=== PATIENT | male | born 1970 | race Caucasian/White ===

== ENCOUNTER 2018-02-12 11:51 | Day surgery (SDC) | payer OTHER ==
[~2018-02-12] VITALS: Ht 175.3 cm; Wt 97.9 kg
[2018-02-12] MEDS ORDERED: IOHEXOL 350 MG/ML 100 ML BTL (for Cath Lab) OTHER ONE (11:52)
[2018-02-12] MEDS ORDERED: NITR1SUB3 SL (12:34)
[2018-02-12] MEDS ORDERED: ASPI81TA23 PO (12:34)
[2018-02-12] MEDS ORDERED: ENAL10TA PO (12:34)
[2018-02-12] MEDS ORDERED: ROSU1TAB10 PO (12:34)
[2018-02-12] MEDS ORDERED: CARD120C4 PO (12:34)
[2018-02-12 12:35] VITALS: BP 127/81; PULSE 61; RESP 16; TEMP 98.4; O2SAT 97
[2018-02-12] MEDS ORDERED: NS 1000P @30 MLS/HR (KVO) IV SCH (12:45)
[2018-02-12 13:05] LABS: AUTOMATED NEUTROPHIL # 4.4 TH/MM3 (1.8-7.7); BASOPHIL % 0.7 % (0.0-2.0); EOSINOPHIL # 0.1 TH/MM3 (0-0.4); EOSINOPHIL % 1.6 % (0.0-4.0); HEMOGLOBIN 15.1 GM/DL (13.0-17.0); LYMPH % 23.7 % (9.0-44.0); LYMPHOCYTE # 1.6 TH/MM3 (1.0-4.8); MEAN CELL VOLUME 91.4 FL (80.0-100.0); MEAN CORPUSCULAR HEMOGLOBIN 32.1 PG (27.0-34.0); MEAN CORPUSCULAR HGB CONC 35.1 % (32.0-36.0); MEAN PLATELET VOLUME 7.4 FL (7.0-11.0); MONO % 7.4 % (0.0-8.0); MONOCYTE # 0.5 TH/MM3 (0-0.9); NEUT % 66.6 % (16.0-70.0); PLATELET COUNT 327 TH/MM3 (150-450); RED BLOOD COUNT 4.71 MIL/MM3 (4.50-5.90); WHITE BLOOD COUNT 6.6 TH/MM3 (4.0-11.0)
[2018-02-12 13:14] LABS: PROTHROMBIN TIME - PATIENT 10.3 SEC (9.8-11.6)
[2018-02-12 13:24] LABS: BICARBONATE 24.5 MEQ/L (21.0-32.0); CALCIUM 8.6 MG/DL (8.5-10.1); CREATININE 0.95 MG/DL (0.60-1.30)
[2018-02-12] MEDS ORDERED: MIDAZOLAM HCL 2 MG/2 ML VIAL ONE (13:32)
[2018-02-12] MEDS ORDERED: VERAPAMIL HCL 5 MG/2 ML VIAL ONE (13:32)
[2018-02-12] MEDS ORDERED: NITROGLYCERIN INJ 5 ML ONE (13:32)
[2018-02-12] MEDS ORDERED: HEPARIN SODIUM - IV 10,000 UNITS/10 ML VIAL ONE (13:32)
--- NOTE | 2018-02-12 14:34 | CATHPROC ---
[facility] HIS Report Study Information Study Number Admission Scheduled Start Study Start [id number] Feb 12 2018 11:51AM 02/12/2018 Feb 12 2018 1:11PM [place] Service Cardiac Catheterization Admit Source Facility Department Other [facility] - Director Of Early Childhood Education Physician and Clinical Staff Initial Raciel Ortega Television Cameraman Lizzette Harper,SOHAIL Recorder Kelsea Tao,RT(R) Recorder Abdifatah SAUCEDA, Yolanda Handley,RT(R) X-Ray Shagufta Branham ,RT(R) Procedures Performed Procedure Location (Site) Vessel Name Coronary Angiograms LCA Left Coronary Coronary Angiograms RCA Right Coronary L Heart Cath Wire insertion Radial (left) Radial Art. Equipment Time Spanish Medical Interpreter Description Size Mfg Part Number Used/Scraped TRANSDUCER, TRUWAVE [id number] 13:14 ENDYMION * Used W/Ciklum *[id number] [id number] *[id number] 13:14 [employer] PACK, CCL CUSTOM * Used *[id number] 13:14 [employer] SUPPORT, ARTERIAL ADULT 99767 *[id number] Used [id number] 13:50 MEDTRONIC JL 4.0 DXTERITY CATHETER FR 5 Used *[id number] PIG ANG 145 DXTERITY 14:16 [employer] FR 5 [id number] Used CATHETER [id number] 13:58 [employer]/AVE EBU 3.5 Z2 GUIDE CATHETER FR 6 Used *[id number] BAND, RADIAL COMPRESSION TR [id number] 14:22 [employer] MEDICAL 24CM Used SHORT 24 *[id number] 13:58 [employer] MEDICAL PACK, ANGIOPLASTY * [id number] Used [id number] 13:14 [employer] MEDICAL WIRE, EXCHANGE 260CM 3MMJ 260CM Used *[id number] 13:14 NAMIC MANIFOLD, 4 PORT * Used *[id number] 13:14 NYCOMED OMNIPAQUE, 350 MG, 150ML 150ML [id number] Used [id number] 13:14 [employer] MEDICAL BLANKET,WARM AIR CCL * Used *[id number] SHEATH, FR6 TRANSRADIAL RM*[id number] 13:14 [employer] MEDICAL FR 6 Used SLENDER 10CM *[id number] 13:58 [employer] PRIME WIRE, VERRATA 185CM 185CM 57764 *[id number] Used Equipment Model, Serial, Lot Number and Expiration Data Description Model Number Serial Number Lot Number Expiration Date JL 4.0 DXTERITY CATHETER [id number] 08-20-2020 PACK, ANGIOPLASTY [id number] 08-31-2020 PIG ANG 145 DXTERITY CATHETER [id number] 07-22-2019 PRIME WIRE, ASIYARATA 185CM [id number] 01-01-2021 History: Allergies Allergy Reaction Ibuprofen History: Risk Factors Family History of Hypertension Dyslipidemia Previous IL Previous Heart Failure Premature CAD Yes Yes Yes No No Prior Valve Prior PCI Prior CABG Surgery No No No Cerebrovascular Peripheral Artery Chronic Lung On Dialysis Diabetes Disease Disease Disease No No No No No History: Stress Tests Stress or Imaging Studies Performed No History: Other Current Smoker No Labs Hgb (g/dl) Hct (%) WBC (l/cumm) Platelets (thousands) 11.60-17.00 35.00-51.00 4.00-11.00 150.00-450.00 15.1 43 6.6 327 Glucose (mg/dl) BUN (mg/dl) Creatinine (mg/dl) BUN:Creatinine (1:x) 74.00-106.00 7.00-18.00 0.50-1.30 10.00-20.00 96 16 0.9 17.8 Na (meq/l) K (meq/l) 136.00-145.00 3.50-5.10 141 3.6 INR (PTT:PT) 0.90-1.10 1 CPK-MB (ng/ML) 0.50-3.60 Not Drawn Medication Medication Total Dose (Bolus/Oral) Medication Total Dosage/Unit 1% XYLOCAINE 3 mL FENTANYL 25 mcg HEPARIN 5800 units RADIAL COCKTAIL 5 mL (Bolus) VERSED 1 mg Medications (Bolus/Oral) Medication Time Given Dosage/Unit Administered By Reason VERSED 02/12/2018 1:36:18 PM 0.5 mg Lizzette Harper 0.5 mg VERSED given by Lizzette Harper, RN via Peripheral IV. Ordered by Raciel Cortes FENTANYL 02/12/2018 1:36:21 PM 25 mcg Lizzette Harper 25 mcg FENTANYL given in lab by Lizzette Harper, RN via Peripheral IV. Ordered by Raciel Cortes . 1% XYLOCAINE 02/12/2018 1:37:02 PM 3 mL Raciel Cortes 3 mL 1% XYLOCAINE given in lab by Raciel Cortes in Left Wrist via Subcutaneous. Ordered by Raciel Story Ntg 200mcg Verapamil 2.5mg Heparin RADIAL COCKTAIL 02/12/2018 1:38:50 PM 5 mL (Bolus) Raciel Cortes 3000U 5 mL (Bolus) RADIAL COCKTAIL given in lab by Raciel Cortes via Radial. Using [Solution Name]. O rdered by Raciel Cortes Reason: Ntg 200mcg Verapamil 2.5mg Heparin 4000U. VERSED 02/12/2018 1:40:54 PM 0.5 mg Lizzette Harper 0.5 mg VERSED given by Lizzette Harper, SOHAIL via Peripheral IV. Ordered by Raciel Cortes HEPARIN 02/12/2018 1:57:49 PM 5800 units Lizzette Harper 5800 units HEPARIN given in lab by Lizzette Harper, SOHAIL via Peripheral IV. Ordered by Junior Cortes Initial Case Assessment Initial Case Assessment Cardiovascular HR NIBP 84 134/84 Edema Present Skin color Skin None Normal Warm Dry Circulatory - Right Pulses Dorsalis Pedis Femoral Radial 3 3 3 Scale (0,1,2,3,4,d) Circulatory - Left Pulses Dorsalis Pedis Femoral Radial 2 1 Scale (0,1,2,3,4,d) Neurological State Oriented to time-place- Alert Moves all extremities person Respiration - General SpO2 (%) 96 Chronological Log Time Study Chronological Log 13:07:47 Patient arrived via Bed. 13:10:52 Patient Name, D.O.B, / Armband Verified By R.N. 13:10:52 Consent signed by the physician and the patient and verified by the Director Of Early Childhood Education staff. 13:10:53 Pre-op and post- op instructions given; patient acknowledges understanding of instructions. 13:10:54 Verbal Stimulation=2 Physical Stimulation=2 Airway=2 Respiration=2 TOTAL=8. (0=absent, 1=li mited, 2=present) Allens test performed on the left radial and ulnar artery by DEBBY with a positive result 13:10:55 13:11:01 Patient has been NPO for More than 6Hrs. 13:11:02 Skin Breakdown-none 13:11:04 A # 20 IV was noted in the Antecubital (left). Grade = 0 13:11:08 History and physical on the chart or being dictated. 13:11:09 Assessment: Initial Case Vitals capture started with the following parameters, Patient=Adult, Interval=5 min, Initial Pr xndfzz=695 mmHg, 13:15:09 Deflation Rate=5 mmHg, Cuff placed on Left Leg 13:15:49 HR=66 bpm, ERKI=154/84 mmhg, SpO2=94.0 %, Resp=15 B/min, Pain=0, Amita=10, Medeiros=2 13:18:41 Allens test performed on the right radial and ulnar artery. 13:19:06 Skin Breakdown- none reported by patient 13:19:37 Maurice Prominences Protected Assessment: Initial Case, HR=84 BPM, STUJ=772/84 mmhg, Edema=None, Color=Normal, Skin = Warm, D ry Right Pulses: Kin Ped=3, Femoral=3, Radial=3 13:19:46 Left Pulses: Kin Ped=2, Femoral=1 Neurological: State=Alert, Ox3, ROD Respiration: SpO2=96 % 13:20:46 HR=62 bpm, FTCB=414/79 mmhg, SpO2=98.0 %, Resp=11 B/min, Pain=0, Medeiros=2 13:21:03 Left radial and groin(s) prepped with 2% chlorhexidine, and draped after a 3 min. waiting t daniela. 13:24:18 MD arrived. 13:25:45 HR=60 bpm, WBLU=509/82 mmhg, SpO2=98.0 %, Resp=12 B/min, Pain=0, Medeiros=2 13:26:29 Pressure channel 1 zeroed. 13:26:51 Pressure channel 1 zeroed. 13:30:44 HR=58 bpm, XNZO=452/83 mmhg, SpO2=97.0 %, Resp=7 B/min, Pain=0, Medeiros=2 Time Out. Correct patient, correct procedure, correct physician, power injector loaded, or not loaded with contrast with 13:34:05 surgical team present. Time Out Concurred by MD and individual staff in procedure. 13:34:25 Case Start 13:35:43 HR=60 bpm, VJAW=960/86 mmhg, Resp=14 B/min, Pain=0, Medeiros=2 13:36:18 0.5 mg VERSED given by Lizzette Harper, SOHAIL via Peripheral IV. Ordered by Raciel Cortes 13:36:21 25 mcg FENTANYL given in lab by Lizzette Harper, SOHAIL via Peripheral IV. Ordered by Raciel Cortes 3 mL 1% XYLOCAINE given in lab by Raciel Cortes in Left Wrist via Subcutaneous. Ordered b y Raciel Cortes 13:37:02 G. 13:38:07 Access site was Left Radial Artery. A SHEATH, FR6 TRANSRADIAL SLENDER 10CM FR 6 was advanced into the Radial (left) using the Modif ied Seldinger 13:38:26 technique. 5 mL (Bolus) RADIAL COCKTAIL given in lab by Raciel Cortes via Radial. Using [Solution Na me]. Ordered by 13:38:50 Raciel Cortes Reason: Ntg 200mcg Verapamil 2.5mg Heparin 4000U. 13:40:08 A JR 4.0 INFINITI CATHETER FR 5 was advanced over a wire. 13:40:54 0.5 mg VERSED given by Lizzette Harper, SOHAIL via Peripheral IV. Ordered by Raciel Cortes 13:41:14 HR=67 bpm, AMPN=572/77 mmhg, SpO2=97.0 %, Resp=14 B/min, Pain=0, Medeiros=2 13:41:43 Wire removed 13:44:05 Pressure channel 1 zeroed. 13:44:17 NIBP STAT measurement started. 13:44:56 HR=62 bpm, NIBP=98/56 mmhg, Resp=17 B/min, Pain=0, Medeiros=2 13:45:55 HR=63 bpm, NIBP=99/46 mmhg, SpO2=94.0 %, Resp=29 B/min, Pain=0, Medeiros=2 13:46:30 The RCA was injected and visualized at various angles. OMNIPAQUE, 350 MG, 150ML 150ML used . 13:47:21 NIBP STAT measurement started. 13:47:54 HR=60 bpm, NIBP=99/46 mmhg, SpO2=95.0 %, Resp=19 B/min, Pain=0, Medeiros=2 After removing the current catheter a JL 4.0 DXTERITY CATHETER FR 5 was advanced over a WIRE, E XCHANGE 260CM 13:49:58 3MMJ 260CM. 13:50:40 HR=65 bpm, KNHC=516/69 mmhg, SpO2=96.0 %, Resp=17 B/min, Pain=0, Medeiros=2 13:51:17 The LCA was injected and visualized at various angles. OMNIPAQUE, 350 MG, 150ML 150ML used . 13:55:43 HR=58 bpm, CPUU=304/74 mmhg, Resp=14 B/min, Pain=0, Medeiros=2 After removing the current catheter a EBU 3.5 Z2 GUIDE CATHETER FR 6 was advanced over a WIRE, EXCHANGE 13:57:03 260CM 3MMJ 260CM. 13:57:49 5800 units HEPARIN given in lab by Lizzette Harper RN via Peripheral IV. Ordered by Raciel Cheek 14:00:46 HR=59 bpm, DTHW=450/72 mmhg, SpO2=94 %, Resp=12 B/min, Pain=0, Medeiros=2 14:05:45 HR=58 bpm, OIAV=898/72 mmhg, SpO2=94.0 %, Resp=18 B/min, Pain=0, Medeiros=2 14:05:54 A PRIME WIRE, VERRATA 185CM 185CM was inserted via Radial (left). 14:10:46 HR=59 bpm, GSPZ=198/66 mmhg, SpO2=94.0 %, Resp=17 B/min, Pain=0, Medeiros=2 14:11:01 Flow Wire was was placed in the OM1 Mid.. The IFR measures 0.98 Percent. 14:12:36 The PRIME WIRE, VERRATA 185CM 185CM was removed. After removing the current catheter a PIG ANG 145 DXTERITY CATHETER FR 5 was advanced over a WI RE, EXCHANGE 14:14:04 260CM 3MMJ 260CM. 14:15:47 HR=60 bpm, PSHU=788/67 mmhg, SpO2=97.0 %, Resp=18 B/min, Pain=0, Medeiros=2 Recorded Pressure: LV, HR=58, Condition=Condition 1 14:19:27 (Left Ventricle) LV 114/-1/16 Recorded Pressure: LV, Ao, HR=56, Condition=Condition 1 14:19:41 (Left Ventricle) LV 111/-1/17, (Aorta) Ao 108/63/85 14:20:42 HR=66 bpm, CAYI=955/75 mmhg, SpO2=97.0 %, Resp=22 B/min, Pain=0, Medeiros=2 14:20:50 Case End Radial Compression Device Used. 9 mLs of air placed in BAND, RADIAL COMPRESSION TR SHORT 24 24C M. Affected 14:21:22 hand 94 % O2 saturation. 14:24:48 Vitals capture stopped. 14:26:24 Bedside Report will be given. 14:27:20 DOCU called. Spoke to Fela 14:27:51 A Left Heart Cath was performed. 14:30:30 Patient moved to stretcher End Study - Contrast Media Used In Study Contrast Total Opened (mL) Total Used (mL) Total Wasted (mL) Omnipaque 70 70 0 End Study - Maximum Contrast Load Max Contrast Load (mL) 543.9 End Study - Radiation Exposure Fluoro Time (minutes) 8.9 End Study - Patient Disposition Complications Transferred To Interventional Outcome No Director Of Early Childhood Education Holding No attempt made
[2018-02-12] MEDS ORDERED: MISC INFORMATION XX ONE (14:45)
--- NOTE | 2018-02-13 13:56 | EKG ---
Date Performed: 02/12/2018 Time Performed: 12:50:34 PTAGE: 47 years EKG: Sinus rhythm . Normal ECG NO PREVIOUS TRACING DOCTOR: Kaya Hewitt Interpretating Date/Time 02/13/2018 13:52:09
--- NOTE | 2018-02-18 08:45 | MA ---
cc: CortesRaciel owen Misty BACA 02/12/2018 DATE OF PROCEDURE: 02/12/2018 PROCEDURE PERFORMED: Left heart catheterization, coronary angiogram, moderate sedation 45 minutes, IFR left circumflex. PREPROCEDURE DIAGNOSIS: Chest pain, abnormal CTA. POSTPROCEDURE DIAGNOSIS: Moderate coronary artery disease. MEDICATIONS: Versed 1 mg, fentanyl 25 mcg, Heparin 9800 units, nitro 200 mcg, verapamil 2.5 mg. CONTRAST USED: 70 mL. FLUOROSCOPY: 8.9 minutes. MODERATE SEDATION: 45 minutes. ESTIMATED BLOOD LOSS: 10 mL. PROCEDURAL SUMMARY: Harish Suazo is a pleasant 47-year-old male who sees my partner, Dr. Hewitt in the office and presented with chest pain. He underwent a stress test which showed no ischemic lesions, but continued to have chest pain and so he was recommended cardiac catheterization. The patient was hesitant about this and so he underwent a CTA, which showed greater than 50% disease in the LAD, circumflex, and RCA and so at that time, he was recommended cardiac catheterization. Risks, benefits and alternatives were explained to him and consented as such. He was brought to the lab and prepped in the usual sterile fashion. The right radial artery was accessed using a modified Seldinger technique and placement of a 5/6 [place] slender sheath. This was easily aspirated and flushed. A JR4 was advanced over a J-wire to the ascending aorta and across the aortic valve for measurement of left ventricular pressure. This was pulled back across the aortic valve showing no significant gradient of aortic stenosis. JR4 was exchanged out for a JL3.5, which was used to perform selective angiography of the left coronary artery system. As there was moderate disease noted in the left circumflex, I felt that this should be further investigated. An EBU 3.5 guide was engaged into the left knee. The patient was given heparin as an anticoagulant. A Verrata wire was advanced into the distal obtuse marginal. IFR was measured at 0.98, showing no physiologic stenosis. The wire was removed and final angiogram shows no disruption of the coronary anatomy. EBU guide was removed over a J-wire. Radial band was placed over the arteriotomy site for hemostasis. The patient left the pathology laboratory director cardiovascularly stable. FINDINGS: LEFT MAIN: Long vessel, but overall normal. It bifurcates into an LAD and circumflex. LAD: Normal size vessel with 20% disease throughout the proximal to mid portion. Distally it has no significant disease. It gives off 1 major diagonal with no significant disease. RAMUS: Overall small vessel at around 1 mm. Appears to have diffuse 50% disease. LEFT CIRCUMFLEX: Normal size vessel with 40% disease in the mid portion. It gives off 1 obtuse marginal with no significant disease. RCA: Normal size vessel with a 30% lesion in the proximal portion. Distally, it supplies the PDA with multiple PLBs and no significant disease. LVEDP: 17. IMPRESSION: 1. Atypical chest pain. 2. Abnormal CTA. 3. Mild to moderate coronary artery disease, as above. RECOMMENDATIONS: 1. Mr. Suazo appears to have mild to moderate coronary artery disease with no significant lesions causing ischemia at this time. 2. He will be recommended continued medical therapy. 3. We will followup with Dr. Hewitt as previously scheduled. Thank you for allowing me to see Harish Suazo. If there are any questions, please do not hesitate to call. Raciel Cortes DO VGP/MICHAEL , 12:24 AM , 08:29 AM
== END 2018-02-12 18:31 | disposition home or self-care (01) ==
LOC: HDIC 11:51 → HDOC 11:51
PROVIDERS: ATTEND Nuclear Medicine Nuclear Cardiology
DX: I25.10 Atherosclerotic heart disease of native coronary artery without angina pectoris (principal); Z79.899 Other long term (current) drug therapy
CPT/HCPCS: 80048; 85025; 85610; 85730; 93005; 93458; 93571; 99152; 99153; C1769; C1887; C1893; J1644; J2250; J3010; J7030; Q9967